=== PATIENT | female | born 1940 | race Caucasian/White ===

== ENCOUNTER 2023-11-11 16:47 | Inpatient (IN) | payer MEDICARE, SELFPAY ==
[2023-11-11] VITALS (10 sets, daily range): BP systolic 98–186; BP diastolic 53–96; BMI 24.2
[2023-11-11] MEDS: MORPHINE SULFATE 4 MG IV (09:47)
[2023-11-11 09:58] LABS: % Basophils 0.4 % (0-2); % Eosinophils 0.9 % (0-6); % Immature Granulocytes 0.8 % (0-0.5); % Lymphocytes 7.6 % (20.5-51.1); % Monocytes 10.3 % (1.7-9.3); Absolute Basophils 0.1 10^3/uL (0-0.2); Absolute Eosinophils 0.1 10^3/uL (0-0.7); Absolute Immature Granulocytes 0.1 10^3/uL (0-0.05); Absolute Lymphocytes 0.9 10^3/uL (1.2-3.4); Absolute Monocytes 1.2 10^3/uL (0.1-0.6); Absolute Neutrophils 8.9 10^3/uL (1.4-6.5); Hematocrit 38.6 % (37.0-47.0); Mean Corp Hgb Conc. 33.7 g/dL (33.0-37.0); Mean Corpuscular Hgb 30.2 pg (27.0-31.0); Mean Corpuscular Volume 89.8 fL (81.0-99.0); Mean Platelet Volume 9.8 fL (7.4-10.4); Nucleated Red Blood Cells % 0 %; Platelet Count 271 10^3/uL (130-400); White Blood Cell Count 11.2 10^3/uL (4.8-10.8)
--- NOTE | 2023-11-11 10:04 | ED.GENMED ---
History of Present Illness
<GAVINO Hoffmann Jr. Last Filed: 11/11/23 15:04>
General
Chief Complaint: Abdominal Pain
Source: patient and family
Exam Limitations: none
Time Seen by Provider: 11/11/23 08:53
Nursing documentation reviewed up to this point in time: agreed with
Travel History
Have you had any contact with someone who has COVID-19?: No
Do you have any symptoms of coronavirus? Fever > 100 degrees, chills, cough, shortness of breath, sore throat, loss of taste or smell, muscle aches, or headache?: No
History of Present Illness
History of Present Illness:
83-year-old female with past medical history of previous bladder cancer that was removed, hyperlipidemia presenting to the emergency department today with concerns of right lower chest over the past few days also was noticed herself feeling winded
with short bouts of exercise. Of note recently she had a chest x-ray a week ago that showed some type of mass to the right lower lobe of the lung and was recommended to get a CT scan of the chest for further assessment of this. Denies any known
history of cancer of the lung.
Past History
<GAVINO Hoffmann Jr. Last Filed: 11/11/23 15:04>
Past History
ED Past Medical History: Other (Bladder polyp)
ED Past Surgical History: Appendectomy and Urological (Polypectomy)
Social History
Tobacco: Non-smoker
Personal:
Living: with family
Family History
Family History: Other
Review of Systems
<GAVINO Hoffmann Jr. Last Filed: 11/11/23 15:04>
Review of Systems
Allergies reviewed?: Yes
All Other Systems: ROS reviewed and negative except as documented in HPI and ROS
Phy Exam
<GAVINO Hoffmann Jr. Last Filed: 11/11/23 15:04>
Physical Exam
Physical Exam:
GENERAL: Alert , in no apparent distress
EYE: pupils equal and reactive
NECK: Supple, no significant adenopathy.
ENT: o/p clr, mmm.
CARDIAC: Regular rate and rhythm .
LUNGS: Clear breath sounds bilaterally, no acute respiratory distress, no wheezes/rales/rhonchi
ABDOMEN: Soft, without focal tenderness, no r/g, no cvat
NEUROLOGICAL: Alert and oriented, no focal neuro deficits
SKIN: Warm and dry, skin intact.
MUSCULOSKELETAL: No edema, well perfused.
PSYCH: Normal and appropriate interaction.
Course
<Alex Leonardo Jr., PA-C - Last Filed: 11/11/23 15:04>
Orders/Labs/Results
Orders:
Orders
11/11/23 09:44
Electrocardiogram (*1) Urgent
Reason for Study: Chest Pain
EKG- Treatment ONCE
Morphine Sulfate 4 mg IV NOW STA
11/11/23 09:47
Complete Blood Count/With Diff Urgent
Comprehensive Metabolic Panel Urgent
Lipase Urgent
Comment: ADD ON
NT-proBNP Urgent
PTT Urgent
Prothrombin Time Urgent
Troponin I Urgent
11/11/23 10:14
US Abdomen Complete/Upper Urgent
Comment:
Reason For Exam: eval gb, ruq pain
11/11/23 10:15
HYDROmorphone [Dilaudid] 0.5 mg IV NOW STA
11/11/23 10:20
Add On- LAB Urgent
Tests Added?: lipase
11/11/23 11:14
Ketorolac [Toradol] 15 mg IV NOW STA
11/11/23 12:03
Urinalysis Reflex To Culture Urgent
Date Specimen was Collected: 11/11/23
Time Specimen was Collected: 12:00
Urine Microscopic Reflex Cult Urgent
Urine Culture Urgent
TERA Source: U
Specimen Description:
Date Specimen was Collected: 11/11/23
Time Specimen was Collected: 12:00
11/11/23 12:33
CT Chest Pe Study Urgent
Comment:
Reason For Exam: hypoxemic right lower chest pain
Diphenhydramine [Benadryl] 50 mg IV NOW STA
Hydrocortisone Sod Succinate [Solu-Cortef] 200 mg IV NOW STA
11/11/23 14:26
Heparin 5,400 units IV NOW STA
Nursing to Place Non Medication Order As Directed
Physician Order: PTT 6 hours after initial start of Heparin infusion
Above order entered?: Yes
11/11/23 14:30
Heparin 16309 Units/250 ml 25,000 units in 250 ml IV PER PROTOCOL
Weight to be used for heparin protocol in kilograms (kg):: 68
Protocol:: DVT/PE
PTT Goal Range to be used:: PTT 73 to 111 seconds
Order type:: Initial
INITIAL Infusion Dose (UNITS/KG/hr) & then follow protocol:: 18 units/kg/hr
Infusion Dose in UNITS/hr & then follow protocol (UNITS/hr):: 1,200
INFUSION RATE in mL/hr & then follow protocol (mL/hr):: 12
For DVT/PE algorithm, re-bolus for low PTT?: Yes
PTT less than or equal to 64 seconds:: Re-bolus 80 units/kg (max 10,000units). Increase by 300 units/hr
(+ 3mL/hr)
PTT 64.1 to 72.9 seconds:: Re-bolus 40 units/kg (max 5,000 units). Increase by 100 units/hr
(+ 1mL/hr)
PTT 73 to 111 seconds:: Target Range. No change in rate.
PTT 111.1 to 130.9 seconds:: Decrease rate by 100 units/hr (- 1 mL/hr)
PTT 131 to 199.9 seconds:: HOLD for 1 hr. Then decrease by 200 units/hr (- 2mL/hr)
PTT greater than or equal to 200 seconds:: HOLD for 2 hrs & Notify Provider. Then decrease by 300 units/hr
(- 3mL/hr)
Lab follow-up:: Each change, PTT q6h until 2 consecutive are therapeutic. Then
PTT daily.
11/11/23 14:44
Heparin 2,700 units IV PRN PRN
Heparin 5,400 units IV PRN PRN
11/11/23 20:50
PTT Urgent
Abnormal Lab Results
11/11/23 11/11/23
09:47 12:03
WBC 11.2 H 10^3/uL
(4.8-10.8)
RDW 15.0 H %
(11.5-14.5)
Abs Immat Gran (auto) 0.1 H 10^3/uL
(0-0.05)
Absolute Neuts (auto) 8.9 H 10^3/uL
(1.4-6.5)
Absolute Lymphs (auto) 0.9 L 10^3/uL
(1.2-3.4)
Absolute Monos (auto) 1.2 H 10^3/uL
(0.1-0.6)
Immature Gran % 0.8 H %
(0-0.5)
Neutrophils % 80.0 H %
(42.2-75.2)
Lymphocytes % 7.6 L %
(20.5-51.1)
Monocytes % 10.3 H %
(1.7-9.3)
PT 15.0 H Sec
(11.4-14.6)
Glucose 113 H mg/dl
(70-99)
Leukocyte Esterase Rfl 2+ A
(Negative)
Urine WBC (Reflex) 50-60 A /HPF
(0-5)
Urine Bacteria (Reflex) Moderate A
(Negative)
11/11/23 09:47
11/11/23 09:47
Vital Signs
Initial and Last Documented VS:
Initial Vital Signs
Temp Pulse Resp BP Pulse Ox
98.3 F 92 18 186/96 91
11/11/23 08:01 11/11/23 08:01 11/11/23 08:01 11/11/23 08:01 11/11/23 08:01
Last Documented Vital Signs
Temp Pulse Resp BP Pulse Ox
98.3 F 75 15 98/79 92
11/11/23 08:01 11/11/23 14:30 11/11/23 14:30 11/11/23 13:00 11/11/23 14:30
<Carmelo Latif MD - Last Filed: 11/11/23 14:30>
Orders/Labs/Results
Orders:
Orders
11/11/23 09:44
Electrocardiogram (*1) Urgent
Reason for Study: Chest Pain
EKG- Treatment ONCE
Morphine Sulfate 4 mg IV NOW STA
11/11/23 09:47
Complete Blood Count/With Diff Urgent
Comprehensive Metabolic Panel Urgent
Lipase Urgent
Comment: ADD ON
NT-proBNP Urgent
PTT Urgent
Prothrombin Time Urgent
Troponin I Urgent
11/11/23 10:14
US Abdomen Complete/Upper Urgent
Comment:
Reason For Exam: eval gb, ruq pain
11/11/23 10:15
HYDROmorphone [Dilaudid] 0.5 mg IV NOW STA
11/11/23 10:20
Add On- LAB Urgent
Tests Added?: lipase
11/11/23 11:14
Ketorolac [Toradol] 15 mg IV NOW STA
11/11/23 12:03
Urinalysis Reflex To Culture Urgent
Date Specimen was Collected: 11/11/23
Time Specimen was Collected: 12:00
Urine Microscopic Reflex Cult Urgent
Urine Culture Urgent
TERA Source: U
Specimen Description:
Date Specimen was Collected: 11/11/23
Time Specimen was Collected: 12:00
11/11/23 12:33
CT Chest Pe Study Urgent
Comment:
Reason For Exam: hypoxemic right lower chest pain
Diphenhydramine [Benadryl] 50 mg IV NOW STA
Hydrocortisone Sod Succinate [Solu-Cortef] 200 mg IV NOW STA
11/11/23 14:26
Heparin 5,400 units IV NOW STA
Nursing to Place Non Medication Order As Directed
Physician Order: PTT 6 hours after initial start of Heparin infusion
Above order entered?: Yes
11/11/23 14:30
Heparin [id number] Units/250 ml 25,000 units in 250 ml IV PER PROTOCOL
Weight to be used for heparin protocol in kilograms (kg):: 68
Protocol:: DVT/PE
PTT Goal Range to be used:: PTT 73 to 111 seconds
Order type:: Initial
INITIAL Infusion Dose (UNITS/KG/hr) & then follow protocol:: 18 units/kg/hr
Infusion Dose in UNITS/hr & then follow protocol (UNITS/hr):: 1,200
INFUSION RATE in mL/hr & then follow protocol (mL/hr):: 12
For DVT/PE algorithm, re-bolus for low PTT?: Yes
PTT less than or equal to 64 seconds:: Re-bolus 80 units/kg (max 10,000units). Increase by 300 units/hr
(+ 3mL/hr)
PTT 64.1 to 72.9 seconds:: Re-bolus 40 units/kg (max 5,000 units). Increase by 100 units/hr
(+ 1mL/hr)
PTT 73 to 111 seconds:: Target Range. No change in rate.
PTT 111.1 to 130.9 seconds:: Decrease rate by 100 units/hr (- 1 mL/hr)
PTT 131 to 199.9 seconds:: HOLD for 1 hr. Then decrease by 200 units/hr (- 2mL/hr)
PTT greater than or equal to 200 seconds:: HOLD for 2 hrs & Notify Provider. Then decrease by 300 units/hr
(- 3mL/hr)
Lab follow-up:: Each change, PTT q6h until 2 consecutive are therapeutic. Then
PTT daily.
11/11/23 14:44
Heparin 2,700 units IV PRN PRN
Heparin 5,400 units IV PRN PRN
11/11/23 20:50
PTT Urgent
Abnormal Lab Results
11/11/23 11/11/23
09:47 12:03
WBC 11.2 H 10^3/uL
(4.8-10.8)
RDW 15.0 H %
(11.5-14.5)
Abs Immat Gran (auto) 0.1 H 10^3/uL
(0-0.05)
Absolute Neuts (auto) 8.9 H 10^3/uL
(1.4-6.5)
Absolute Lymphs (auto) 0.9 L 10^3/uL
(1.2-3.4)
Absolute Monos (auto) 1.2 H 10^3/uL
(0.1-0.6)
Immature Gran % 0.8 H %
(0-0.5)
Neutrophils % 80.0 H %
(42.2-75.2)
Lymphocytes % 7.6 L %
(20.5-51.1)
Monocytes % 10.3 H %
(1.7-9.3)
PT 15.0 H Sec
(11.4-14.6)
Glucose 113 H mg/dl
(70-99)
Leukocyte Esterase Rfl 2+ A
(Negative)
Urine WBC (Reflex) 50-60 A /HPF
(0-5)
Urine Bacteria (Reflex) Moderate A
(Negative)
11/11/23 09:47
11/11/23 09:47
Vital Signs
Initial and Last Documented VS:
Initial Vital Signs
Temp Pulse Resp BP Pulse Ox
98.3 F 92 18 186/96 91
11/11/23 08:01 11/11/23 08:01 11/11/23 08:01 11/11/23 08:01 11/11/23 08:01
Last Documented Vital Signs
Temp Pulse Resp BP Pulse Ox
98.3 F 75 15 98/79 92
11/11/23 08:01 11/11/23 14:30 11/11/23 14:30 11/11/23 13:00 11/11/23 14:30
<Alex Leonardo Jr., PA-C - Last Filed: 11/11/23 15:04>
MDM/Problems Addressed
MDM/Problems Addressed:
83-year-old female presenting to the emergency department today with concerns of right lower chest discomfort. Ongoing for a few days. Also has felt some shortness of breath with exertion. Upon arrival here patient hypoxic in the 80s with 4 L
nasal cannula improving this to the low 90s. No history of requiring oxygen or lung issues. Did have some type of mass that was seen on x-ray last week. Other vital signs normal initial blood pressure elevated but reducing after receiving pain
medication. No reproducible tenderness to the abdomen. Plan for CT scan for further assessment.
Patient additionally had ultrasound to evaluate for multiple quad abdominal pain. No evidence of emergent pathology. Normal-appearing kidneys. Patient does have a slight white count on labs otherwise labs unremarkable urine potentially infection
however patient does not have any urinary David symptoms thus was not started on antibiotics at this time. CT scan was obtained showing bilateral PE and right sided mass potentially bronchogenic carcinoma. Case was discussed with pulmonary and
interventional radiology due to the findings of right heart strain on CT scan. Patient will be admitted to medicine stable throughout ER stay on 4 L nasal cannula.
<Alex Leonardo Jr., PA-C - Last Filed: 11/11/23 15:04>
*Critical Care Note
Total Time (30-74mins, 75-104mins- exclusive of procedures): Not Applicable
ED Attending Note
<Alex Leonardo Jr., PA-C - Last Filed: 11/11/23 15:04>
-
Portions of this chart may have been created with voice recognition software.� Occasional wrong word or��sound alike� substitutions may have occurred due to the inherent limitations of voice recognition software.
<Carmelo Latif MD - Last Filed: 11/11/23 14:30>
ED Attending Note
Patient seen and examined by attending physician: Yes
ED Attending Note:
Patient presents to ED secondary to 2-day history of persistent right upper abdominal/chest pain. Pain described as sharp, worse when laying down, with nausea sensation without vomiting. Denies fever or chills. Denies diarrhea. Denies trauma.
Denies difficulty with urination. Patient has had history of kidney stones, but does not remember if pain is similar to what she had with a kidney stone episode. Denies recent illness. No recent change in medications or diet. Denies change in
bowel habits.
Physical Exam
General: moderate painful distress, not acutely ill. afebrile. overweight.
Head: nc/at. eomi
Neck: supple. no meningeal signs.
Heart: s1/s2 regular rate and rhythm, no murmur. equal radial pulses.
Lungs: no acute respiratory distress. clear bilaterally
Abdomen: normal bowel sounds. moderate epigastric/RUQ tenderness to palpation.
Neuro: alert and oriented. no focal neurological deficits
Skin: no rash
Psychiatric: well kept. interactive and cooperative
Extremities: no edema. no calf tenderness
History and exam concerning for. Colic versus renal colic versus pancreatitis versus pulmonary embolism. Patient's initial presenting hypoxia, without subjective sensation of shortness of breath, likely secondary to pain and patient's
unwillingness to take deep breaths secondary to pain. Will obtain abdominal ultrasound and reevaluate.
US report reviewed: gallstone without associated findings. Pt however has had gallstones in the past. As such, will obtain CTA PE study, due to persistent hypoxia, when taken off oxygen.
CTA: positive PE. Will start heparin protocol.
Critical care statement: A total of 40 minutes of critical care time was provided for this patient. This includes management of unstable vital signs, evaluation of the patient at bedside, reviewing the patient's pertinent medical records, review of
old EKGs and review of pertinent medical records. This time with separate from time utilized to perform the aforementioned documented procedures
Discharge Plan
Departure
Patient Disposition: Admit
Date of Disposition: 11/11/23
Time of Disposition: 15:03
Admit to: IMU
Admit to doctor: Klaus
Presentation/result/management discussed w/ accepting MD/DO: Hospitalist
Patient with high blood pressure during this ER visit?: No
Condition: Good
Covid-19: Not Applicable
Discharge Problem:
Pulmonary embolism, Mass of right lung, Hypoxemia
Prescriptions:
No Action
multivitamin 1 EACH tablet
1 ea PO DAILY
Lumigan 1 DROP drops
1 drp BOTH EYES HS
simvastatin 20 MG tablet
20 mg PO QPM
prednisone 5 mg Tablet
5 mg PO NOON
levothyroxine [Synthroid] 25 mcg Tablet
25 mcg PO DAILY
ibuprofen [Advil] 200 mg Tablet
400 mg PO Q8HPRN PRN (Reason: mild pain)
Referrals:
Thais Schmidt MD [Family Provider] -
Interventions
Interventions:
*Risk Screen - Suicide Last Done: 11/11/23 09:03
*General Assessment Last Done: 11/11/23 09:03
*Neglect/Abuse Screening Last Done: 11/11/23 09:03
ED- Fall Risk Assessment Last Done: 11/11/23 09:03
*ED COVID-19 Vaccine History Last Done: 11/11/23 09:03
XA-Mgmzox-Orglcyqhjv Assessment Last Done: 11/11/23 09:03
[2023-11-11 10:14] LABS: ALT (SGPT) 19 U/L (0-35); AST (SGOT) 23 U/L (14-36); Albumin 3.9 g/dl (3.5-5.0); Alkaline Phosphatase 74 U/L (38-126); Blood Urea Nitrogen 17 mg/dl (7-17); Calcium 9.3 mg/dl (8.4-10.2); Carbon Dioxide 27 mmol/L (22-30); Chloride 107 mmol/L (98-107); Estimated Creatinine Clearance 57 ml/min; Glucose 113 mg/dl (70-99); Potassium 4.4 mmol/L (3.5-5.1); Sodium 139 mmol/L (135-145); Total Bilirubin 0.7 mg/dl (0.2-1.3); Total Protein 6.7 g/dl (6.3-8.2); eGFR > 60.00
[2023-11-11] MEDS: DILAUDID 0.5 MG IV (10:19)
[2023-11-11 10:25] LABS: APTT 34.2 Sec (23.4-35.0); NT-proBNP 148 pg/ml; Troponin I < 0.012 ng/ml
[2023-11-11 10:36] LABS: Lipase 95 U/L (23-300)
[2023-11-11] MEDS: TORADOL 15 MG IV (11:22)
[2023-11-11 12:17] LABS: Urine Albumin Trace (Neg - Trace); Urine Bilirubin Negative (Negative); Urine Character Slightly Cloudy (Clear); Urine Color Yellow; Urine Glucose Negative (Negative); Urine Ketone Negative (Negative); Urine Leukocyte 2+ (Negative); Urine Nitrite Negative (Negative); Urine Occult Blood Negative (Negative); Urine Specific Gravity 1.025 (<1.030); Urine Urobilinogen Negative (Neg - 1+)
[2023-11-11] MEDS: BENADRYL 50 MG IV (12:48)
[2023-11-11 12:50] LABS: Urine White Cell 50-60 /HPF (0-5)
[2023-11-11 12:51] LABS: Urine Bacteria Moderate (Negative); Urine Red Blood Cell 0-2 /HPF (0-2)
[2023-11-11 12:52] LABS: Urine Urothelial Cell 0-2 /LPF (FEW)
[2023-11-11] MEDS: SOLU-CORTEF 200 MG IV (13:37)
[2023-11-11] MEDS: HEPARIN 5400 UNITS IV (14:49)
[2023-11-11] MEDS: HEPARIN 25000 UNITS/250 ML IV (14:50)
--- NOTE | 2023-11-11 15:27 | CON.INTV ---
Consultation
Consultation Request
Date/Time Consultation Requested: 11/11/2023 - 144
Date/Time Consultation Performed: 11/11/2023 - 1457
Requesting Provider: YANICK Warren
Performing Provider: Dr. Anderson
Reason for Consultation: PERT alert
Medical History
-
Chief Complaint: Abdominal pain
History of Present Illness:
83-year-old female former tobacco smoker with past medical history of bladder cancer on BCG, hypothyroidism, and hyperlipidemia who presents with right upper quadrant pain x 2 days. Patient afebrile in the ER to 90.3 �F, pulse rate 75, BP: 98/79,
SpO2 92% on room air. Labs suggestive of leukocytosis with WBC 11.2, Hb 13 and platelets 271. Urinalysis shows +2 leukocyte esterase suggestive of UTI. Right upper quadrant ultrasound showed gallstones without evidence of acute cholecystitis.
While in the ER, she developed chest discomfort hypoxia and CTA chest was performed showing PE.
When I saw the patient she was in bed, saturating 93% on 4 L/min nasal cannula, BP 150/84 and heart rate 84. She says she still feels fatigued, shortness breath with activity. She is a former smoker with [id number] history, quit 40 years ago.
Her father has a history of lung cancer (he was cigar smoker), and mother also had lung cancer and she from acute kidney failure. She is currently finishing treatment for bladder cancer with BCG - she was diagnosed with bladder cancer
about 3-4 years ago. She denies any personal Hx of DVT/PE or VTE. She currently denies chest pain, headache, nausea, vomiting, fevers or chills.
PMHx: Former tobacco use disorder, hyperlipidemia, right hip arthritis, cataracts, glaucoma, impaired vision, history of lung cancer, hypothyroidism
PSHx: Appendectomy, bilateral cataract surgery
Past Medical History
Past Medical History: Other (Above as per HPI)
Past Surgical History: Other (Above as per HPI)
Social History
Tobacco: Former Smoker (20-PY Hx - quit 40 years ago)
Alcohol: None
Drug: None
Family History
Family History: Cancer (Lung cancer - father and mother)
Allergies / Home Medications
Allergies
Allergy/AdvReac Type Severity Reaction Status Date / Time
iodine Allergy Hives Verified 06/01/21 07:58
shellfish derived Allergy Hives Verified 06/01/21 07:58
Sulfa (Sulfonamide Allergy Internal, Verified 06/01/21 07:58
Antibiotics) external
hives
Home Medications
Medication Instructions Recorded Confirmed Last Taken Type
multivitamin 1 ea PO DAILY Supplement 09/27/18 11/11/23 11/10/23 History
bimatoprost 0.01 % eye drops 1 drp BOTH EYES HS Eye Condition 01/11/21 11/11/23 11/10/23 History
(Lumigan)
simvastatin 20 mg tablet 20 mg PO QPM High Cholesterol 05/29/21 11/11/23 11/10/23 History
ibuprofen 200 mg tablet (Advil) 400 mg PO Q8HPRN PRN mild pain 11/11/23 11/11/23 Unknown History
levothyroxine 25 mcg tablet 25 mcg PO DAILY Thyroid 11/11/23 11/11/23 Unknown History
(Synthroid)
prednisone 5 mg tablet 5 mg PO NOON Anti-Inflammatory 11/11/23 11/11/23 Unknown History
Review of Systems
-
History Source: Patient
All other systems: Negative unless noted (12 point ROS performed and is negative unless mentioned above.)
Vitals / Labs / Diagnostic Testing
Vital Signs
Temp Pulse Resp BP Pulse Ox
98.3 F 75 15 98/79 92
11/11/23 08:01 11/11/23 14:30 11/11/23 14:30 11/11/23 13:00 11/11/23 14:30
Lab Data
11/11/23 09:47
11/11/23 09:47
Laboratory Results
11/11/23
09:47
PT 15.0 H
INR 1.20
APTT 34.2
Diagnostic Testing:
Physical Exam
-
HEENT: Normocephalic and Anicteric
Cardiovascular: S1/S2 and Peripheral Edema (Negative)
Respiratory: Wheeze (Negative), Rales (bibasilar), Rhonchi (right lower lobe + RML) and Accessory Resp Muscle Use (Negative)
GI: Soft, Non Distended, Non Tender and Normal Bowel Sounds
Neurology: AO x 3 and No Motor Deficits
Skin: Warm and Dry
General: Comfortable, Chills (Negative) and Sweats (Negative)
Assessment
-
Assessment: 83-year-old female former tobacco smoker with past medical history of bladder cancer on BCG, hypothyroidism, and hyperlipidemia who presents with right upper quadrant pain x 2 days. Patient afebrile in the ER to 90.3 �F, pulse rate 75,
BP: 98/79, SpO2 92% on room air. Labs suggestive of leukocytosis with WBC 11.2, Hb 13 and platelets 271. Urinalysis shows +2 leukocyte esterase suggestive of UTI. Right upper quadrant ultrasound showed gallstones without evidence of acute
cholecystitis. While in the ER, she developed chest discomfort hypoxia and CTA chest was performed showing PE.
Chronic medical conditions PEDIATRIC RN: Former tobacco use disorder, hyperlipidemia, right hip arthritis, cataracts, glaucoma, impaired vision, history of lung cancer, hypothyroidism
Impression:
#Acute hypoxic respiratory failure due to acute PE in setting of R-sided PNA + extrinsic compression of bronchus intermedius by R-hilar mass
#Right upper lobe/right lower lobe pneumonia likely representing postobstructive pneumonia in setting of right hilar mass (suspected lung cancer)
#Submassive pulmonary embolism with high risk features
#Right hilar mass with right-sided mediastinal/hilar lymphadenopathy - suspected to be bronchogenic carcinoma with localized spread
#RUQ pain with 1.8cm gallstone and without cholecystitis --> RUQ pain likely referred pain in setting of acute PE
Plan:
- Systemic anticoagulation - heparin gtt and eventually NOAC
- IR reviewed imaging --> considering clot burden are distal and pt has mild RV strain with negative troponin, no need for thrombolytic therapy or thrombo-/-embolectomy
- Maintain MAP>65
- Monitor for sudden drop in SBP>15-20% and/or HR>120 as this could indicate developing obstructive shock
- pain control
- Check TTE
- Check LE duplex
- Maintain euglycemia with BG 140-180mg/dL
- Replete electrolytes K>3.5, Mg>1.8
- DVT ppx
Admit to telemetry. We will follow along as a it architecture consultant.
Data:
CTA Chest 10-11-2023: �Examination is positive for bilateral pulmonary embolism. Finding was [place] text to Alex Leonardo in the emergency department on November 11, 2023, with acknowledgment.
Findings suggesting mild right heart strain.
Central right lung mass, which very likely represents bronchogenic carcinoma.
Patchy parenchymal opacity within the right lung beyond the mass, which is likely postobstructive pneumonia and/or atelectasis.
Trace amount of right pleural fluid.
Right suprahilar and mediastinal lymphadenopathy, which is likely neoplastic lymphadenopathy.
Mild fatty infiltration of the liver.
Abdominal US 11-11-2023:
1.8 cm gallstone is present within the gallbladder. There are no secondary findings to suggest acute cholecystitis. No evidence of biliary ductal dilation.
Mild fatty infiltration of the liver.
--- NOTE | 2023-11-11 16:36 | HPS.HSE ---
Family Physician
-
Family Physician: Thais Schmidt
Chief Complaint
-
Right pleuritic chest pain
History of Present Illness
Patient is 83 years old female with history of surgically treated bladder carcinoma, dyslipidemia, hypothyroidism presents to the emergency room with days of right lower chest pain. She also complains of exertional shortness of breath. She denies
any syncope, fever. She has mild intermittent nonproductive cough. Given persistent respiratory symptoms patient had a chest x-ray ordered by primary physician close to a week ago with report showing right lower lobe process with suspicion for
mass/carcinoma. Given persistent symptoms and worsening shortness of breath she presents to the emergency room today. On presentation his she is hemodynamically stable, although noted to be hypoxic with pulse ox at mid 80s on room air. Additional
workup with CT scan of the chest was positive for pulmonary embolism and right lower lobe/hilar process. Patient was initiated on oxygen therapy with now saturations at mid 90s on 4 L of nasal cannula oxygen with no evidence of distress. She
remains hemodynamically stable. Patient was initiated on IV heparin drip.
Medical History
Past Medical History
Past Medical History: Reports Cancer (Bladder cancer), Hypercholesterolemia and Hypothyroidism; Denies CHF, COPD or CVA
Past Surgical History: Reports Other (Urologic/bladder)
Social History
Tobacco: Former Smoker (Quit 35 years ago)
Alcohol: None
Drug: None
Personal:
Living: With Family
Employment: Retired
Family History
Family History: Not pertinent
Allergies / Home Medications
Allergies reflects when Allergies were last updated in [employer].
Home Medications with original date entered in [employer]
Allergy/Medication List:
Allergies
Allergy/AdvReac Type Severity Reaction Status Date / Time
iodine Allergy Hives Verified 06/01/21 07:58
shellfish derived Allergy Hives Verified 06/01/21 07:58
Sulfa (Sulfonamide Allergy Internal, Verified 06/01/21 07:58
Antibiotics) external
hives
Home Medications
multivitamin 1 ea PO DAILY Supplement 09/27/18
bimatoprost 0.01 % eye drops (Lumigan) 1 drp BOTH EYES HS Eye Condition 01/11/21
simvastatin 20 mg tablet 20 mg PO QPM High Cholesterol 05/29/21
ibuprofen 200 mg tablet (Advil) 400 mg PO Q8HPRN PRN mild pain 11/11/23
levothyroxine 25 mcg tablet (Synthroid) 25 mcg PO DAILY Thyroid 11/11/23
prednisone 5 mg tablet 5 mg PO NOON Anti-Inflammatory 11/11/23
Review of Systems
-
A 12 point ROS was completed and negative except as noted: Yes
Physical Exam
Vital Signs
Vital Signs
Temp Pulse Resp BP Pulse Ox
98.3 F 81 19 98/79 92
11/11/23 08:01 11/11/23 15:30 11/11/23 15:30 11/11/23 13:00 11/11/23 15:30
Physical Exam
General: Well Developed, Well Nourished and No Apparent Distress
HEENT: NormoCephalic, Moist mucous membranes and Atraumatic
Respiratory: Clear
Cardiac: S1/S2 and Regular Rhythm; No Murmur or Rub
GI: Soft, Non Tender, Non Distended and Normal Bowel Sounds; No Organomegaly
Rectal: Deferred by Provider
Musculoskeletal: No Clubbing, No Cyanosis and No Edema
Skin: No Rash
Neuro: Awake, Alert, Oriented, AO x 3 and Nonfocal/grossly intact
Laboratory Results
-
11/11/23 09:47
11/11/23 09:47
Laboratory Results
PT 15.0 Sec (11.4-14.6) H 11/11/23 09:47
INR 1.20 11/11/23 09:47
APTT 34.2 Sec (23.4-35.0) 11/11/23 09:47
Total Bilirubin 0.7 mg/dl (0.2-1.3) 11/11/23 09:47
AST 23 U/L (14-36) 11/11/23 09:47
ALT 19 U/L (0-35) 11/11/23 09:47
Alkaline Phosphatase 74 U/L (38-126) 11/11/23 09:47
Troponin I < 0.012 ng/ml 11/11/23 09:47
Lipase 95 U/L (23-300) 11/11/23 09:47
Data Reviewed
-
CT Scan: Report Reviewed by me
Ultrasound: Report Reviewed by me
Lab Data: Labs Reviewed by me
Impression/Plan
-
IMPRESSION:
Acute hypoxic respiratory failure.
� Exertional dyspnea with hypoxia at 84% on room air
Pulmonary embolism, bilateral.
Central right lung mass likely presenting bronchogenic carcinoma
Patchy parenchymal opacity within the right lung beyond the mass with concern for atelectasis versus postobstructive pneumonia.
Conditions prior to admission:
Hypothyroidism
Dyslipidemia.
History of bladder carcinoma surgically treated
PLAN:
Acute hypoxic respiratory failure.
Likely multifactorial in the settings of acute PE as well as lung mass.
Improved and stable with nasal cannula oxygen supplementation.
Acute pulmonary embolism.
CT scan as above.
Hemodynamically stable on presentation.
Suggestion of mild right heart strain on CT scan.
PESI 133 assuming diagnosis of carcinoma by imaging which represents class V very high risk.
Given hemodynamic stability no clear indication for lytic treatment.
Check echocardiogram
Lower extremity Doppler reviewed
Initiated on IV heparin with plan to transition to oral anticoagulation over the next 24 to 48 hours
Pulmonology consultation
Right lower lobe infiltrate, atelectasis versus postobstructive process/pneumonia.
Afebrile with normal white count, nonproductive cough. At this point less likely infectious process.
Will monitor closely while off antibiotics
Check procalcitonin.
Hypothyroidism
Continue levothyroxine
Dyslipidemia
Continue statin
GI prophylaxis PPI given anticoagulation.
DVT prophylaxis/heparin
--- NOTE | 2023-11-11 18:30 | PTCARENOTE ---
Received patient from ED. Patient AAOX3. Patient on 6L o2, sp02 95%. Lungs diminished with scattered expiratory wheezing. Patient denies shortness of breath, Denies chest pain or pressure. Heparin drip infusing at 1200 units/12mls/hr via right
ac site. SR on monitor. Oriented patient to room.
[2023-11-11] MEDS: PROTONIX 20 MG PO (18:39)
[2023-11-11] MEDS: SYNTHROID 25 MCG PO (18:39)
[2023-11-11] MEDS: LIPITOR 10 MG PO (18:39)
[2023-11-11] MEDS: METAMUCIL, KONSYL 1 PACKET PO (21:44)
[2023-11-11] MEDS: LUMIGAN 0.01% 1 DROP BOTH EYES (21:45)
[2023-11-11 21:50] LABS: Procalcitonin 0.08 ng/ml (0.0-0.25)
[2023-11-11 22:29] LABS: APTT > 200 Sec (23.4-35.0)
--- NOTE | 2023-11-11 23:52 | PTCARENOTE ---
Assumed care of pt from day RN, Pt on heparin gtt 1200U/12ml/hr. Pt AAOx3, completed admission. Follow up PTT above 200, reported to Night [employer] and protocol followed.
[2023-11-12] VITALS (12 sets, daily range): BP systolic 114–144; BP diastolic 55–94
[2023-11-12] MEDS: SYNTHROID 25 MCG PO (04:51)
[2023-11-12 06:56] LABS: % Basophils 0.3 % (0-2); % Eosinophils 2.2 % (0-6); % Immature Granulocytes 0.9 % (0-0.5); % Lymphocytes 11.5 % (20.5-51.1); % Neutrophils 74.1 % (42.2-75.2); Absolute Eosinophils 0.2 10^3/uL (0-0.7); Absolute Immature Granulocytes 0.1 10^3/uL (0-0.05); Absolute Lymphocytes 0.9 10^3/uL (1.2-3.4); Absolute Monocytes 0.9 10^3/uL (0.1-0.6); Absolute Neutrophils 5.8 10^3/uL (1.4-6.5); Hematocrit 34.6 % (37.0-47.0); Hemoglobin 11.5 g/dL (12.0-16.0); Mean Corp Hgb Conc. 33.2 g/dL (33.0-37.0); Mean Corpuscular Hgb 29.9 pg (27.0-31.0); Mean Corpuscular Volume 89.9 fL (81.0-99.0); Mean Platelet Volume 10.1 fL (7.4-10.4); Nucleated Red Blood Cells % 0 %; Platelet Count 257 10^3/uL (130-400); Red Blood Cell Count 3.85 10^6/uL (4.20-5.40); Red Cell Dist. Width 14.7 % (11.5-14.5); White Blood Cell Count 7.9 10^3/uL (4.8-10.8)
[2023-11-12 07:12] LABS: APTT 84.1 Sec (23.4-35.0)
[2023-11-12 07:25] LABS: Blood Urea Nitrogen 23 mg/dl (7-17); Calcium 8.7 mg/dl (8.4-10.2); Carbon Dioxide 25 mmol/L (22-30); Chloride 109 mmol/L (98-107); Estimated Creatinine Clearance 67 ml/min; Glucose 94 mg/dl (70-99); Potassium 3.9 mmol/L (3.5-5.1); Sodium 137 mmol/L (135-145); eGFR > 60.00
--- NOTE | 2023-11-12 08:00 | PTCARENOTE ---
Patient received from night shift manager. Patient resting comfortable in bed. AAO, VSS. No events noted overnight. No complaints of pain at this time. Patient still on O2, will attempt to wean. Heparin gtt @ 900units/hr, PTT assessment resulted @
0726 was 84.1. Patient to get up to chair for breakfast. ECHO to be done. Call chambers in reach.
[2023-11-12] MEDS: PROTONIX 20 MG PO (08:49)
[2023-11-12] MEDS: THERAGRAN 1 TABLET PO (08:49)
--- NOTE | 2023-11-12 09:39 | W.PN.PUL3 ---
Today's Communication / Plan
-
Continued on IV heparin with eventual transition to OAC
Lung mass suspicious for cancer, will need outpatient FU which was reviewed again with patient
Wean O2 as tolerated, home O2 eval
ECHO pending
Assessment
-
83-year-old female former tobacco smoker with past medical history of bladder cancer on BCG, hypothyroidism, and hyperlipidemia who presents with right upper quadrant pain x 2 days.� Patient afebrile in the ER to 90.3 �F, pulse rate 75, BP: 98/79,
SpO2 92% on room air.� Labs suggestive of leukocytosis with WBC 11.2, Hb 13 and platelets 271.� Urinalysis shows +2 leukocyte esterase suggestive of UTI.� Right upper quadrant ultrasound showed gallstones without evidence of acute cholecystitis.�
While in the ER, she developed chest discomfort hypoxia and CTA chest was performed showing PE.
Acute hypoxic respiratory failure due to acute PE in setting of R-sided PNA + extrinsic compression of bronchus intermedius by R-hilar mass
Right upper lobe/right lower lobe pneumonia likely representing postobstructive pneumonia in setting of right hilar mass (suspected lung cancer)
Submassive pulmonary embolism with high risk features
6.5cm Right hilar mass with right-sided mediastinal/hilar lymphadenopathy - suspected to be bronchogenic carcinoma with localized spread
RUQ pain with 1.8cm gallstone and without cholecystitis --> RUQ pain likely referred pain in setting of acute PE
Chronic medical conditions [employer]:�
Recurrent Bladder Cancer (02/2017, 12/2020) s/p �TURBT x 3, BLC: Ta, High-grade and CIS�
s/p Blue-light cystoscopy with biopsy: no cancer� � 05/2021 �
Former tobacco use disorder
Hyperlipidemia
Right hip arthritis
Cataracts
Glaucoma
Impaired vision
Hypothyroidism
Family history of lung cancer
Plan:
Currently on 6L with sats at 96%
She has no prior known history of lung disease in past
Former smoker, 1/2-1 PPD for 20 years, quit many years ago
Family history +lung cancer in her father, diagnosed in his 60s
PE noted on CT, reviewed
Initiated on systemic anticoagulation - heparin gtt and eventually NOAC
IR reviewed imaging --> considering clot burden are distal and pt has mild RV strain with negative troponin, no need for thrombolytic therapy or thrombo-/-embolectomy
Eventual transition to OAC
Maintain MAP>65
Monitor for sudden drop in SBP>15-20% and/or HR>120 as this could indicate developing obstructive shock
Pain control PRN
Reviewed findings of lung mass with patient
This is a new finding
Has history of localized bladder cancer, was finishing treatment
We reviewed next steps can be done as OP, FU CT with evaluation for need for tissue biopsy
Outpatient pulmonary FU recommended
Procal neg
Not on abx
Sputum culture if able
Check TTE, results pending
proBNP neg 148
Check LE duplex
Aspiration precautions
Advance diet as tolerated
Reviewed care plan with patient
Diagnostic Data
CTA Chest 11-11-2023: �In the left, there is a small amount of embolus extending into the proximal HILARY anterior segment branch. There is embolus within the distal aspect of the left upper lobe main pulmonary artery, and extending into the left lower
lobe proximal pulmonary artery. On the right, there is narrowing of RML and RLL pulmonary artery branches due to a central mass lesion. There are subtle filling defects within the middle lobe and lower lobe segmental branches, compatible with
right-sided emboli. Interventricular septum is slightly deviated toward the left, particularly toward the base of the left ventricle. The right ventricle is slightly larger than the left ventricle. Findings would suggest a component of right heart
strain.
There is a central right hilar and infrahilar mass, and appears to involve the right upper lobe, right middle lobe, with greatest involvement in the anterior aspect of the right lower lobe. This mass measures approximately 6.0 cm craniocaudal by 6.5
cm AP by 4.7 cm transverse. The mass invades the lateral aspect of the bronchus intermedius, extending into the lumen, as seen on image 41 of series 402. The mass results in encasement and narrowing of the right middle lobe and right lower lobe
pulmonary arteries. This mass is highly suspicious for central bronchogenic carcinoma.
Note is also made of subcarinal lymphadenopathy. There are lymph nodes extending into the right suprahilar region into the mediastinum, suspicious for neoplastic lymphadenopathy.
Patchy parenchymal opacity within the more distal aspect of the right lower lobe, the right middle lobe, and the inferolateral aspect of the right upper lobe, which is most likely postobstructive pneumonia and/or atelectasis.
Duplex 11/11/23- IMPRESSION:� No no findings to confirm deep venous thrombosis of the lower extremities bilaterally.
Abdominal US 11-11-2023:
1.8 cm gallstone is present within the gallbladder. There are no secondary findings to suggest acute cholecystitis. No evidence of biliary ductal dilation.
Mild fatty infiltration of the liver.
Subjective Data
-
Date of Service:
Date of Service: November 12, 2023
Chief Complaint: Pulmonary Follow Up
Subjective:
patient seen and examined, no acute events ON
no new complaints
obtaining echo
Objective Data
Data Reviewed
Vital Signs / I&O / Oxygen:
Vital Signs
Temp Pulse Resp BP Pulse Ox
97.2 F 60 21 136/70 94
11/12/23 03:00 11/12/23 06:00 11/12/23 06:00 11/12/23 06:00 11/12/23 08:49
Intake and Output
11/11/23 11/12/23 11/13/23
06:59 06:59 06:59
Intake Total 537 / 537
Balance 537 / 537
SaO2 94
Nasal Cannula flow liters per 6
minute
Physical Exam
General: Comfortable and Other (NAD, obese)
HEENT: Normocephalic, Anicteric and Moist Mucous Membranes
Cardiovascular: S1-S2 and Regular Rhythm
Respiratory: Clear (decreased BS at bases) and Non-Labored Respirations
GI: Soft, Non Distended and Non Tender
Neurology: Awake, Alert, Oriented, AO x 3 and No Motor Deficits
Skin: Warm, Dry and Good Color
Labs/Micro/Reports
Lab Data
11/12/23 06:44
11/12/23 06:44
Laboratory Results
11/11/23 11/11/23 11/11/23
09:47 20:46 21:53
PT 15.0 H
INR 1.20
APTT 34.2 Cancelled > 200 H*
11/12/23
06:44
PT
INR
APTT 84.1 H
--- NOTE | 2023-11-12 10:05 | CM ---
Patient who resides at [facility] with Dx Acute hypoxic respiratory failure, Acute pulmonary embolism. O2 6L. Heparin gtt. Per nurse assessment; requires assist of 1.
Spoke with patient's Juan Jose;
the patient resides with her in an apartment at [facility].
The patient was Independent ADLs/ambulation. She was active and driving.
She assists her as his caregiver - he states he is homebound and on O2.
The patient has no DME, prior VN or SNF.
PCP - Thais Schmidt
Pharmacy - [facility]
Plan met with patient and offer VN.
Plan watch for home O2 needs.
Plan home.
--- NOTE | 2023-11-12 10:18 | CM ---
Patient who resides at [facility] with Dx Acute hypoxic respiratory failure, Acute pulmonary embolism. O2 6L. Heparin gtt. Per nurse assessment; requires assist of 1.
Spoke with patient's Juan Jose;
the patient resides with her in an apartment at [facility].
The patient was Independent ADLs/ambulation. She was active and driving.
She assists her as his caregiver - he states he is homebound and on O2.
The patient has no DME, prior VN or SNF.
PCP - Thais Schmidt
Pharmacy - [facility]
The patient has 2 children, a son in [place] and a daughter Amy in the [facility], who is an DIRECTOR OF OFFICIATING and a Professor at [employer].
Plan met with patient and offer VN.
Plan watch for home O2 needs.
Plan home.
[2023-11-12] MEDS: DELTASONE 5 MG PO (12:57)
[2023-11-12 13:25] LABS: APTT 36.1 Sec (23.4-35.0)
--- NOTE | 2023-11-12 13:40 | W.PN.HOSP.TC ---
Addendum entered and electronically signed by Ivan Alba MD 11/12/23 16:55:
Patient seen and examined
Discussed with resident
Discussed with pulmonology.
Impression/plan:
Acute bilateral pulmonary embolism.
Acute hypoxic respiratory failure likely multifactorial due to PE as well as right lower lobe process with high clinical/radiologic suspicion for bronchogenic carcinoma
Presented hemodynamically stable.
Echocardiogram with no evidence of RV strain or pulmonary hypertension.
Transition to oral anticoagulation with Eliquis
Increase activity as tolerates with attempt to wean off oxygen.
Right lower lobe process with concern for bronchogenic carcinoma
Outpatient follow-up with pulmonology
Oncology consultation
Concern for postobstructive process, although patient is afebrile with nonproductive cough which improved since admission
Procalcitonin level undetectable
Monitor closely off antibiotics
Original Note:
Today's Communication/Plan
-
- Transition to apixaban.
- Wean oxygen as tolerated.
- Oncology consult for suspected bronchogenic carcinoma with suprahilar and mediastinal lymphadenopathy (patient is not followed by heme/onc outpatient).
Assessment / Plan
Assessment / Plan
Assessment:
Anahy Mcgill, 83 year-old female, presented to the emergency with progressively worsening right lower chest pain and exertional dyspnea on 11-11-23. She has had mild intermittent nonproductive cough for the past few weeks, and had a chest x-ray
ordered by primary physician close to a week ago with report showing right lower lobe process with suspicion for mass/carcinoma. When she started experiencing chest pain and progressive dyspnea, she came to the ED. On admission, she was noted to be
hypoxic with pulse ox at mid-80s on room air. Chest CT was positive for bilateral pulmonary embolism, central right lung mass (which very likely represents bronchogenic carcinoma with right suprahilar and mediastinal lymphadenopathy). Echo was
normal. She was treated with heparin IV, transitioned to apixaban on 11-12-23.
Impression:
* Bilateral pulmonary embolism
* Suspected bronchogenic carcinoma
* Right lower lobe infiltrate
Conditions prior to admission:
* History of bladder cancer
* Hypothyroidism
* Dyslipidemia
Plan:
Bilateral pulmonary embolism
- She came to the emergency with progressive right chest pain and exertional dyspnea on 11-11-23.
- On admission, she was noted to be hypoxic with pulse ox at mid-80s on room air.
- CTA chest showed bilateral pulmonary embolism with evidence of right heart strain.
- Given hemodynamic stability, there was no clear indication for lytic treatment.
- She was treated with IV heparin, and transitioned to apixaban on 11-12-23.
- Echocardiogram and peripheral lower extremity ultrasound were unremarkable on 11-12-23.
- Pulse ox 96 on 6 L on 11-12-23.
- She remains hemodynamically stable.
- No previous history of DVT/PE, or known history of blood or clotting disorders.
- Seems provoked in context of the new suspected bronchogenic carcinoma.
Suspected bronchogenic carcinoma
- CT chest shows 'central right hilar and infrahilar mass, and appears to involve the right upper lobe, right middle lobe, with greatest involvement in the anterior aspect of the right lower lobe. This mass measures approximately 6.0 cm craniocaudal
by 6.5 cm AP by 4.7 cm transverse. The mass invades the lateral aspect of the bronchus intermedius, extending into the lumen.'
- Also demonstrated 'subcarinal lymphadenopathy. There are lymph nodes extending into the right suprahilar region into the mediastinum, suspicious for neoplastic lymphadenopathy.'
- Of note recently she had a chest x-ray a week ago that showed some type of mass to the right lower lobe of the lung.
- She has had intermittent nonproductive cough for the past few weeks.
- 58-[id number] history; quit 40 years ago.
- Her father has a history of lung cancer (he was cigar smoker), and mother also had lung cancer and she from acute kidney failure.
- Pulmonary following.
- Oncology consult for suspected bronchogenic carcinoma with right suprahilar and mediastinal lymphadenopathy (patient is not followed by heme/onc outpatient).
Right lower lobe infiltrate
- Atelectasis versus postobstructive process/pneumonia.
- Afebrile, nonproductive cough, white count and procalcitonin within normal limits
- Less likely to be infectious.
- Monitor closely while not on antibiotics.
History of bladder cancer
- She is currently finishing treatment with BCG.
- She was diagnosed with bladder cancer about 3-4 years ago.
Hypothyroidism
- Continue levothyroxine
Dyslipidemia
- Continue statin
GI prophylaxis
- PPI given anticoagulation.
DVT prophylaxis
- Heparin; will switch to apixaban.
Code status
- Full.
Anticipated Discharge: 24 - 48 hours
Subjective/Interval History
-
Date of Service: November 12, 2023
Objective Data
-
Labs:
Laboratory Results
11/12/23 11/12/23
06:44 13:03
WBC 7.9
Hgb 11.5 L
Hct 34.6 L
Plt Count 257
APTT 84.1 H 36.1 H
Sodium 137
Potassium 3.9
Chloride 109 H
Carbon Dioxide 25
BUN 23 H
Creatinine 0.6
Glucose 94
Calcium 8.7
Vital Signs:
Vital Signs
Temp Pulse Resp BP Pulse Ox
98.6 F 60 21 136/70 96
11/12/23 11:57 11/12/23 06:00 11/12/23 06:00 11/12/23 06:00 11/12/23 11:35
I&O
11/11/23 11/12/23 11/13/23
06:59 06:59 06:59
Intake Total 537 / 537
Balance 537 / 537
Review of Systems
-
History Source: Patient
EENT: Reports No Symptoms Reported
Respiratory: Reports No Symptoms
Cardiac: Reports No Symptoms
Abdomen/GI: Reports No Symptoms
Genitourinary: Reports No Symptoms
Musculoskeletal: Reports No Symptoms
Skin: Reports No Symptoms
Neuro: Reports No Symptoms
Hematologic / Lymphatic: Reports No Symptoms
Allergy / Immunology: Reports No Symptoms
Physical Exam
-
General: No Apparent Distress and Comfortable
HEENT: Normocephalic and Anicteric
Respiratory: Clear to Auscultation
Cardiac: Regular Rhythm and S1/S2
GI: Soft, Nontender, Nondistended and No Hepatosplenomegaly
Genito-urinary: No Costovertebral Tender
Musculoskeletal: No Clubbing, No Cyanosis and No Edema
Skin: IV Access / Catheter Site
Neuro: AO x 3 and No Motor Deficits
Hematologic / Lymphatic: No Lymphadenopathy
Psych: Calm
[2023-11-12] MEDS: HEPARIN 5400 UNITS IV (14:29)
[2023-11-12] MEDS: LIPITOR 10 MG PO (18:23)
[2023-11-12] MEDS: ELIQUIS 10 MG PO (18:44)
[2023-11-12] MEDS: LUMIGAN 0.01% 1 DROP BOTH EYES (21:34)
--- NOTE | 2023-11-12 22:45 | PTCARENOTE ---
Assumed care of Pt from day RN. Pt made this RN aware that she was very upset with interactions she had with providers that came to see her today. She was pleased with Pulmonary Dr. Emotional support given. Assessment care and vitals as charted.
[2023-11-13] VITALS (10 sets, daily range): BP systolic 125–161; BP diastolic 62–79; PULSE 90; O2SAT 95
[2023-11-13] MEDS: SYNTHROID 25 MCG PO (05:47)
--- NOTE | 2023-11-13 07:09 | CON.ONC ---
Impression
Impression
B/L PE
Right Lung mass 6.0 x 6.5 x 4.7 cm highly suspicious for central bronchogenic carcinoma with subcarinal lymphadenopathy. There are lymph nodes extending into the right suprahilar region into the mediastinum, suspicious for neoplastic lymphadenopathy
Hx high grade stage 0 Bladder Ca s/p TURBT and BCG
Plan
Plan
Regarding pulm embolism, agree with anticoagulation. Patient is currently on apixaban following a short course of IV heparin. Etiology of the pulmonary embolism is likely NOT congenital hypercoagulability but likely related to underlying
malignancy. Lower extremity Dopplers were negative for DVT.
Regarding the right lung mass which radiographically is suspicious for bronchogenic carcinoma, agree with pulmonary consultation.
Patient requires bronchoscopic evaluation. In light of active PE, appropriate to treat patient with repeat imaging and if appropriate bronchoscopy as outlined by pulmonary.
Patient is somewhat angry that we are consulted without a confirmed diagnosis. I explained that this is appropriate but for now she wishes to just follow-up with pulmonary and see us only if or after the diagnosis is confirmed.
I gave patient our business card. For now I will hold off on scheduling follow-up but we will be happy to see her again if needed.
I will sign off as patient her wishes to hold off on additional oncology follow-up until she has a diagnosis and pulmonary as planning outpatient evaluation as mentioned above
Patient History
History of Present Illness
CC: Lung mass
HPI: 83 years old female with history of surgically treated bladder carcinoma, dyslipidemia, hypothyroidism presented to the emergency room with days of right lower chest pain and exertional shortness of breath. A chest x-ray ordered by PCP
suggestive of a RLL mass. Refered to the ER 11/11 for further evaluation . On presentation, she was hypoxic with pulse ox at mid 80s on room air. Underwent chest CT scan that revealed 1. pulmonary embolism and 2. confirmed a suspicious right
lower lobe/hilar process. IV heparin drip started. Oncology & Pulmonary consulted for suspected Lung cancer and management of PE.
Past-Medical/Surgical History
PMH: Bladder cancer (Non-invasive high grade papillary urothelial carcinoma), Hypercholesterolemia and Hypothyroidism
PSH: TURBT 2020 followed by [facility] - Shawn, urology
SH:
Tobacco: Former Smoker (Quit 35 years ago)
Alcohol: None
Drug: None
Personal:
Living: With Family
Employment: Retired
FH: Lung cancer - father and mother
Patient Medication
Medication Instructions Recorded Confirmed Last Taken Type
multivitamin 1 ea PO DAILY Supplement 09/27/18 11/11/23 11/10/23 History
bimatoprost 0.01 % eye drops 1 drp BOTH EYES HS Eye Condition 01/11/21 11/11/23 11/10/23 History
(Lumigan)
simvastatin 20 mg tablet 20 mg PO QPM High Cholesterol 05/29/21 11/11/23 11/10/23 History
Metamucil Q OTHER DAY 11/11/23 1 Day Ago History
~11/10/23
ibuprofen 200 mg tablet (Advil) 400 mg PO Q8HPRN PRN mild pain 11/11/23 11/11/23 Unknown History
levothyroxine 25 mcg tablet 25 mcg PO DAILY Thyroid 11/11/23 11/11/23 Unknown History
(Synthroid)
prednisone 5 mg tablet 5 mg PO NOON Anti-Inflammatory 11/11/23 11/11/23 Unknown History
Active Medications
Generic Name Dose Route Start Last Admin
Trade Name Freq PRN Reason Stop Dose Admin
Albuterol/Ipratropium 3 ml 11/11/23 22:40
Ipratropium 0.5/Albuterol 3 Mg (3 Ml Ampul) INH 12/09/23 22:39
R Q4HPRN PRN
sob/wheeze
Protocol
Apixaban 10 mg 11/12/23 20:00 11/12/23 18:44
Apixaban (Eliquis) 5 Mg Tablet PO 11/19/23 08:01 10 mg
BID PARVEZ Administration
Apixaban 5 mg 11/19/23 20:00
Apixaban (Eliquis) 5 Mg Tablet PO 12/17/23 19:59
BID PARVEZ
Atorvastatin Calcium 10 mg 11/11/23 18:18 11/12/23 18:23
Atorvastatin (Lipitor) 10 Mg Tablet PO 12/09/23 18:17 10 mg
QPM PARVEZ Administration
Bimatoprost 0 drop 11/11/23 22:00 11/12/23 21:34
Bimatoprost 0.01% Oph Marilyn (Lumigan) 2.5 Ml Bottle BOTH EYES 12/09/23 21:59 1 drop
HS PARVEZ Administration
Levothyroxine Sodium 25 mcg 11/11/23 18:18 11/13/23 05:47
Levothyroxine 25 Mcg Tablet PO 12/09/23 18:17 25 mcg
DAILY@0700 PARVEZ Administration
Multivitamins Therapeutic 1 tablet 11/12/23 08:00 11/12/23 08:49
Multivitamin Tablet PO 12/10/23 07:59 1 tablet
DAILY PARVEZ Administration
Pantoprazole Sodium 20 mg 11/11/23 18:18 11/12/23 08:49
Pantoprazole 20 Mg Delayed Release Tablet PO 12/09/23 18:17 20 mg
DAILY PARVEZ Administration
Prednisone 5 mg 11/12/23 12:00 11/12/23 12:57
Prednisone 5 Mg Tablet PO 12/10/23 11:59 5 mg
NOON PARVEZ Administration
Psyllium Hydrophilic Mucilloid 1 packet 11/11/23 21:00 11/11/23 21:44
Psyllium Packet PO 12/09/23 20:59 1 packet
Q48H PARVEZ Administration
Sodium Chloride 0 flush 11/11/23 19:00
Sodium Chloride 0.9% (Flush) Syringe IV 12/09/23 18:59
PER PROTOCOL PARVEZ
Review of Systems
-
History Source: Patient
Constitutional: Reports No Symptoms
EENT: Reports No Symptoms
Respiratory: Reports Trouble Breathing
Cardiac: Reports Chest Pain
GI: Reports No Symptoms
: Reports No Symptoms
Skin: Reports No Symptoms
Neuro: Reports No Symptoms
Hematologic/Lymphatic: Reports No Symptoms
Physical Exam
-
General: Well Developed, Well Nourished and No Apparent Distress
HEENT: Negative Jaundice
Cardiology: Normal Sinus Rhythm, S1 and S2
Pulmonary: Clear
GI: Soft
Musculoskeletal: No Clubbing, No Cyanosis and No Edema
Neurology: Non Focal
Labs
Lab Results
WBC 7.9 10^3/uL (4.8-10.8) 11/12/23 06:44
RBC 3.85 10^6/uL (4.20-5.40) L 11/12/23 06:44
Hgb 11.5 g/dL (12.0-16.0) L 11/12/23 06:44
Hct 34.6 % (37.0-47.0) L 11/12/23 06:44
MCV 89.9 fL (81.0-99.0) 11/12/23 06:44
MCH 29.9 pg (27.0-31.0) 11/12/23 06:44
MCHC 33.2 g/dL (33.0-37.0) 11/12/23 06:44
RDW 14.7 % (11.5-14.5) H 11/12/23 06:44
Plt Count 257 10^3/uL (130-400) 11/12/23 06:44
MPV 10.1 fL (7.4-10.4) 11/12/23 06:44
Abs Immat Gran (auto) 0.1 10^3/uL (0-0.05) H 11/12/23 06:44
Absolute Neuts (auto) 5.8 10^3/uL (1.4-6.5) 11/12/23 06:44
Absolute Lymphs (auto) 0.9 10^3/uL (1.2-3.4) L 11/12/23 06:44
Absolute Monos (auto) 0.9 10^3/uL (0.1-0.6) H 11/12/23 06:44
Absolute Eos (auto) 0.2 10^3/uL (0-0.7) 11/12/23 06:44
Absolute Basos (auto) 0.0 10^3/uL (0-0.2) 11/12/23 06:44
Immature Gran % 0.9 % (0-0.5) H 11/12/23 06:44
Neutrophils % 74.1 % (42.2-75.2) 11/12/23 06:44
Lymphocytes % 11.5 % (20.5-51.1) L 11/12/23 06:44
Monocytes % 11.0 % (1.7-9.3) H 11/12/23 06:44
Eosinophils % 2.2 % (0-6) 11/12/23 06:44
Basophils % 0.3 % (0-2) 11/12/23 06:44
Creatinine 0.6 mg/dL (0.6-1.0) 11/12/23 06:44
Imaging:
Chest CTA
IMPRESSION: Examination is positive for bilateral pulmonary embolism.
Findings suggesting mild right heart strain.
Central right lung mass, which very likely represents bronchogenic carcinoma.
Patchy parenchymal opacity within the right lung beyond the mass, which is likely postobstructive pneumonia and/or atelectasis.
Trace amount of right pleural fluid.
Right suprahilar and mediastinal lymphadenopathy, which is likely neoplastic lymphadenopathy.
Mild fatty infiltration of the liver.
Details:
There is a central right hilar and infrahilar mass, and appears to involve the right upper lobe, right middle lobe, with greatest involvement in the anterior aspect of the right lower lobe. This mass measures approximately 6.0 cm craniocaudal by 6.5
cm AP by 4.7 cm transverse. The mass invades the lateral aspect of the bronchus intermedius, extending into the lumen, as seen on image 41 of series 402. The mass results in encasement and narrowing of the right middle lobe and right lower lobe
pulmonary arteries.
This mass is highly suspicious for central bronchogenic carcinoma.
Note is also made of subcarinal lymphadenopathy. There are lymph nodes extending into the right suprahilar region into the mediastinum, suspicious for neoplastic lymphadenopathy.
Vital Signs
Vital Signs
Temp Pulse Resp BP Pulse Ox
97.7 F 64 22 131/66 93
11/13/23 02:52 11/13/23 06:00 11/13/23 06:00 11/13/23 06:00 11/13/23 06:00
[2023-11-13] MEDS: THERAGRAN 1 TABLET PO (07:47)
[2023-11-13] MEDS: PROTONIX 20 MG PO (07:47)
[2023-11-13] MEDS: ELIQUIS 10 MG PO ×2 (07:47→21:51)
--- NOTE | 2023-11-13 08:40 | PTCARENOTE ---
Patient received from production supervisor off shift. Patient resting comfortable in bed. AAO, VSS. No events noted overnight. No complaints of pain at this time. Patient still on O2, will continue to attempt to wean. Assess home O2 needs. Eliquis resumed last
evening. Patient to get up to chair for breakfast. Call chambers in reach.
--- NOTE | 2023-11-13 09:13 | W.PN.PUL3 ---
Today's Communication / Plan
-
CT chest reviewed, will need outpatient FU for next steps
She is improving, no further sob/chest pain
Home O2 eval ordered
PT/OT eval
Hopefully can discharge in next 24 hours if able to set up home needs
Outpatient pulmonary FU recommended
Assessment
-
83-year-old female former tobacco smoker with past medical history of bladder cancer on BCG, hypothyroidism, and hyperlipidemia who presents with right upper quadrant pain x 2 days.� Patient afebrile in the ER to 90.3 �F, pulse rate 75, BP: 98/79,
SpO2 92% on room air.� Labs suggestive of leukocytosis with WBC 11.2, Hb 13 and platelets 271.� Urinalysis shows +2 leukocyte esterase suggestive of UTI.� Right upper quadrant ultrasound showed gallstones without evidence of acute cholecystitis.�
While in the ER, she developed chest discomfort hypoxia and CTA chest was performed showing PE.
Acute hypoxic respiratory failure due to acute PE in setting of R-sided PNA + extrinsic compression of bronchus intermedius by R-hilar mass
Right upper lobe/right lower lobe pneumonia likely representing postobstructive pneumonia in setting of right hilar mass (suspected lung cancer)
Submassive pulmonary embolism with high risk features
6.5cm Right hilar mass with right-sided mediastinal/hilar lymphadenopathy - suspected to be bronchogenic carcinoma with localized spread
RUQ pain with 1.8cm gallstone and without cholecystitis --> RUQ pain likely referred pain in setting of acute PE
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
Recurrent Bladder Cancer (02/2017, 12/2020) s/p �TURBT x 3, BLC: Ta, High-grade and CIS�
s/p Blue-light cystoscopy with biopsy: no cancer� � 05/2021 �
Former tobacco use disorder
Hyperlipidemia
Right hip arthritis
Cataracts
Glaucoma
Impaired vision
Hypothyroidism
Family history of lung cancer
Plan:
Currently on 6L with sats at 96%
She has no prior known history of lung disease in past
Former smoker, 1/2-1 PPD for 20 years, quit many years ago
Family history +lung cancer in her father, diagnosed in his 60s
Home O2 eval
PE noted on CT, reviewed
Initiated on systemic anticoagulation - heparin gtt and eventually NOAC
IR reviewed imaging --> considering clot burden are distal and pt has mild RV strain with negative troponin, no need for thrombolytic therapy or thrombo-/-embolectomy
Eventual transition to OAC
Maintain MAP>65
Monitor for sudden drop in SBP>15-20% and/or HR>120 as this could indicate developing obstructive shock
Pain control PRN
Reviewed findings of lung mass with patient
This is a new finding
Has history of localized bladder cancer, was finishing treatment
We reviewed next steps can be done as OP, FU CT with evaluation for need for tissue biopsy
Outpatient pulmonary FU recommended
Procal neg
Not on abx
Sputum culture if able
Check TTE, results pending
proBNP neg 148
Check LE duplex
Aspiration precautions
Advance diet as tolerated
Reviewed care plan with patient
She has changed providers and is requesting another provider change
Care plan communicated with team
Diagnostic Data
CTA Chest 11-11-2023: �In the left, there is a small amount of embolus extending into the proximal HILARY anterior segment branch. There is embolus within the distal aspect of the left upper lobe main pulmonary artery, and extending into the left lower
lobe proximal pulmonary artery. On the right, there is narrowing of RML and RLL pulmonary artery branches due to a central mass lesion. There are subtle filling defects within the middle lobe and lower lobe segmental branches, compatible with
right-sided emboli. Interventricular septum is slightly deviated toward the left, particularly toward the base of the left ventricle. The right ventricle is slightly larger than the left ventricle. Findings would suggest a component of right heart
strain.
There is a central right hilar and infrahilar mass, and appears to involve the right upper lobe, right middle lobe, with greatest involvement in the anterior aspect of the right lower lobe. This mass measures approximately 6.0 cm craniocaudal by 6.5
cm AP by 4.7 cm transverse. The mass invades the lateral aspect of the bronchus intermedius, extending into the lumen, as seen on image 41 of series 402. The mass results in encasement and narrowing of the right middle lobe and right lower lobe
pulmonary arteries. This mass is highly suspicious for central bronchogenic carcinoma.
Note is also made of subcarinal lymphadenopathy. There are lymph nodes extending into the right suprahilar region into the mediastinum, suspicious for neoplastic lymphadenopathy.
Patchy parenchymal opacity within the more distal aspect of the right lower lobe, the right middle lobe, and the inferolateral aspect of the right upper lobe, which is most likely postobstructive pneumonia and/or atelectasis.
Duplex 11/11/23- IMPRESSION:� No no findings to confirm deep venous thrombosis of the lower extremities bilaterally.
Abdominal US 11-11-2023:
1.8 cm gallstone is present within the gallbladder. There are no secondary findings to suggest acute cholecystitis. No evidence of biliary ductal dilation.
Mild fatty infiltration of the liver.
Subjective Data
-
Date of Service:
Date of Service: November 13, 2023
Chief Complaint: Pulmonary Follow Up
Subjective:
patient seen and examined, no acute events on
feels her sob and chest pain resolved completely
remains on 6L nc, sats >96%
Objective Data
Data Reviewed
Vital Signs / I&O / Oxygen:
Vital Signs
Temp Pulse Resp BP Pulse Ox
98.3 F 64 22 131/66 93
11/13/23 07:21 11/13/23 06:00 11/13/23 06:00 11/13/23 06:00 11/13/23 06:00
Intake and Output
11/12/23 11/13/23 11/14/23
06:59 06:59 06:59
Intake Total 537 / 537 240 / 240
Balance 537 / 537 240 / 240
SaO2 93
Nasal Cannula flow liters per 6
minute
Physical Exam
General: Comfortable and Other (NAD, obese)
HEENT: Normocephalic, Anicteric and Moist Mucous Membranes
Cardiovascular: S1-S2 and Regular Rhythm
Respiratory: Clear (decreased BS at bases) and Non-Labored Respirations
GI: Soft, Non Distended and Non Tender
Neurology: Awake, Alert, Oriented, AO x 3 and No Motor Deficits
Skin: Warm, Dry and Good Color
Labs/Micro/Reports
Lab Data
11/12/23 06:44
11/12/23 06:44
Laboratory Results
11/12/23
13:03
APTT 36.1 H
Microbiology
11/11/23 12:03 Urine Urine Culture - Final
No Significant Growth
--- NOTE | 2023-11-13 12:33 | W.PN.HOSP.TC ---
Today's Communication/Plan
-
Wean oxygen as tolerated
Monitor closely on Eliquis
Monitor blood pressure
Home O2 eval prior to discharge
Assessment / Plan
Assessment / Plan
Assessment:
Anahy Mcgill, 83 year-old female, presented to the emergency with progressively worsening right lower chest pain and exertional dyspnea on 11-11-23. She has had mild intermittent nonproductive cough for the past few weeks, and had a chest x-ray
ordered by primary physician close to a week ago with report showing right lower lobe process with suspicion for mass/carcinoma. When she started experiencing chest pain and progressive dyspnea, she came to the ED. On admission, she was noted to be
hypoxic with pulse ox at mid-80s on room air. Chest CT was positive for bilateral pulmonary embolism, central right lung mass (which very likely represents bronchogenic carcinoma with right suprahilar and mediastinal lymphadenopathy). Echo was
normal. She was treated with heparin IV, transitioned to apixaban on 11-12-23.
Bilateral pulmonary embolism
- She came to the emergency with progressive right chest pain and exertional dyspnea on 11-11-23.
- On admission, she was noted to be hypoxic with pulse ox at mid-80s on room air.
- CTA chest showed bilateral pulmonary embolism with evidence of right heart strain.
- Given hemodynamic stability, there was no clear indication for lytic treatment and was evaluated by interventional radiology.
- She was treated with IV heparin, and transitioned to apixaban on 11-12-23.
- Echocardiogram and peripheral lower extremity ultrasound were unremarkable on 11-12-23.
- Remains on 6 L of oxygen. Discussed with RN to start weaning down. Home O2 eval prior to discharge.
- Monitor vital signs closely for severe acute drop in blood pressure and severe tachycardia which could be a sign of obstructive pathology and will require transfer to ICU.
- No previous history of DVT/PE, or known history of blood or clotting disorders.
Suspected bronchogenic LESION
- [id number] history; quit 40 years ago.
- Her father has a history of lung cancer (he was cigar smoker), and mother also had lung cancer and she from acute kidney failure.
- Pulmonary following-will plan for outpatient evaluation with repeat imaging and if positive for persistent lesion then tissue biopsy
-Oncology correspondence noted.
Right lower lobe infiltrate
- Atelectasis versus postobstructive process/pneumonia.
- Afebrile, nonproductive cough, white count and procalcitonin within normal limits
- Less likely to be infectious.
- Monitor closely while not on antibiotics.
History of bladder cancer
- She is currently finishing treatment with BCG.
- She was diagnosed with bladder cancer about 3-4 years ago.
Hypothyroidism
- Continue levothyroxine
Dyslipidemia
- Continue statin
GI prophylaxis
- PPI given anticoagulation.
DVT prophylaxis
-Eliquis
Code status
- Full.
Discussed case with RN
Discussed case in detail with pulmonary
Anticipated Discharge: > 48 hours
Subjective/Interval History
-
Date of Service: November 13, 2023
Took over care from another provider this morning
Sitting in chair
Denies chest pain or shortness of breath at rest or exertion
Remains on 6L of oxygen
Heparin gtt was stopped on 11/12/23 and transitioned to Eliquis overnight
not on home oxygen
Objective Data
-
Vital Signs:
Vital Signs
Temp Pulse Resp BP Pulse Ox
98.0 F 64 22 131/66 93
11/13/23 11:24 11/13/23 06:00 11/13/23 06:00 11/13/23 06:00 11/13/23 12:11
I&O
11/12/23 11/13/23 11/14/23
06:59 06:59 06:59
Intake Total 537 / 537 240 / 240
Balance 537 / 537 240 / 240
Physical Exam
-
General: Well Developed, Well Nourished, No Apparent Distress and Comfortable
HEENT: Normocephalic, Moist Mucous Membranes, Anicteric and Oxygen (6L)
Respiratory: Clear to Auscultation
Cardiac: Regular Rhythm and S1/S2
GI: Soft, Nontender, Nondistended and No Hepatosplenomegaly
Rectal: Deferred by Provider
Genito-urinary: Deferred by me
Musculoskeletal: No Clubbing, No Cyanosis and No Edema
Skin: IV Access / Catheter Site
Neuro: Awake, Alert, Oriented, AO x 3, No Motor Deficits and Nonfocal/Grossly Intact
Psych: Calm
Data Reviewed
-
Total Time Spent with Patient (in minutes): 55
[2023-11-13] MEDS: DELTASONE 5 MG PO (12:59)
--- NOTE | 2023-11-13 16:18 | CM ---
Addendum entered by Gilma Almonte RN 11/13/23 16:25:
Home O2 Assessment noted: O2 sat 88% RA ambulating.
Messages with Dr Ramirez; she wants to repeat home O2 assessment tomorrow and will then decide if home O2 will be ordered.
Plan follow up tomorrow with Dr Ramirez if home O2 will be ordered, after Home O2 Assessment repeated on 11/14.
Plan home.
Original Note:
Patient who resides at [facility] with Dx Acute hypoxic respiratory failure, Acute pulmonary embolism. Room air. Home O2 Assessment. Per nurse assessment; ambulatory in room, assist of 1.
Met with patient and offered VN. Patient says she does not thinks she wants [facility] VN when she goes home.
Patient was aware that home O2 assessment would be done today. The patient clarified that she was going to decide if she wants home O2 after talking with Dr Ramirez. She said when her went home no one told them O2 was ordered until it was
delivered. CM tried to reassure her she could decide if she wants home O2 and CM should communicate home O2 options to her, including which DME provider she wants to use. She thinks her has [employer] for his oxygen however she is not
sure if she is satisfied with their service. Patient may also want POC tank for maximal mobility.
Plan follow up after home O2 assessment.
[2023-11-13] MEDS: LIPITOR 10 MG PO (17:50)
[2023-11-13] MEDS: MELATONIN 5 MG PO (21:51)
[2023-11-13] MEDS: METAMUCIL, KONSYL 1 PACKET PO (21:51)
[2023-11-13] MEDS: LUMIGAN 0.01% 1 DROP BOTH EYES (21:51)
[2023-11-14] VITALS (8 sets, daily range): BP systolic 111–138; BP diastolic 63–102
[2023-11-14 03:55] LABS: % Basophils 0.5 % (0-2); % Eosinophils 4.1 % (0-6); % Immature Granulocytes 1.1 % (0-0.5); % Lymphocytes 11.5 % (20.5-51.1); % Monocytes 10.7 % (1.7-9.3); % Neutrophils 72.1 % (42.2-75.2); Absolute Eosinophils 0.3 10^3/uL (0-0.7); Absolute Immature Granulocytes 0.1 10^3/uL (0-0.05); Absolute Monocytes 0.9 10^3/uL (0.1-0.6); Hemoglobin 11.5 g/dL (12.0-16.0); Mean Corp Hgb Conc. 33.8 g/dL (33.0-37.0); Mean Corpuscular Hgb 29.8 pg (27.0-31.0); Mean Corpuscular Volume 88.1 fL (81.0-99.0); Mean Platelet Volume 9.8 fL (7.4-10.4); Nucleated Red Blood Cells % 0 %; Platelet Count 313 10^3/uL (130-400); Red Blood Cell Count 3.86 10^6/uL (4.20-5.40); Red Cell Dist. Width 14.7 % (11.5-14.5); White Blood Cell Count 8.3 10^3/uL (4.8-10.8)
[2023-11-14 03:59] LABS: INR 1.59
[2023-11-14 04:00] LABS: APTT 37.7 Sec (23.4-35.0)
[2023-11-14 04:11] LABS: Blood Urea Nitrogen 25 mg/dl (7-17); Calcium 9.3 mg/dl (8.4-10.2); Carbon Dioxide 23 mmol/L (22-30); Chloride 105 mmol/L (98-107); Estimated Creatinine Clearance 57 ml/min; Glucose 112 mg/dl (70-99); Potassium 4.3 mmol/L (3.5-5.1); Sodium 137 mmol/L (135-145); eGFR > 60.00
--- NOTE | 2023-11-14 05:14 | PTCARENOTE ---
Received patient up in chair, assisted to bed; pt has steady gait. Patient requested a sleep aid overnight; order for melatonin received and administered per NOV. Pt able to sleep in between cares. Tele showing NSR. Sp02 decreases to 87% on RA while
sleeping; 3L NC placed and Sp02 increased to mid 90s. VS otherwise stable. Denies any pain. Tolerating Eliquis. Call chambers within reach. Pt calls appropriately.
[2023-11-14] MEDS: SYNTHROID 25 MCG PO (06:18)
[2023-11-14] MEDS: ELIQUIS 10 MG PO (08:46)
[2023-11-14] MEDS: THERAGRAN 1 TABLET PO (08:46)
[2023-11-14] MEDS: PROTONIX 20 MG PO (08:46)
--- NOTE | 2023-11-14 09:09 | W.PN.PUL3 ---
Today's Communication / Plan
-
reviewed care plan with patient again today
home O2 set up per team, reviewed with patient
outpatient pulmonary fu recommended again today, we reviewed arrangements
transitioned to oac
discharge planning per team
Assessment
-
83-year-old female former tobacco smoker with past medical history of bladder cancer on BCG, hypothyroidism, and hyperlipidemia who presents with right upper quadrant pain x 2 days.� Patient afebrile in the ER to 90.3 �F, pulse rate 75, BP: 98/79,
SpO2 92% on room air.� Labs suggestive of leukocytosis with WBC 11.2, Hb 13 and platelets 271.� Urinalysis shows +2 leukocyte esterase suggestive of UTI.� Right upper quadrant ultrasound showed gallstones without evidence of acute cholecystitis.�
While in the ER, she developed chest discomfort hypoxia and CTA chest was performed showing PE.
Acute hypoxic respiratory failure due to acute PE in setting of R-sided PNA + extrinsic compression of bronchus intermedius by R-hilar mass
Right upper lobe/right lower lobe pneumonia likely representing postobstructive pneumonia in setting of right hilar mass (suspected lung cancer)
Submassive pulmonary embolism with high risk features
6.5cm Right hilar mass with right-sided mediastinal/hilar lymphadenopathy - suspected to be bronchogenic carcinoma with localized spread
RUQ pain with 1.8cm gallstone and without cholecystitis --> RUQ pain likely referred pain in setting of acute PE
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
Recurrent Bladder Cancer (02/2017, 12/2020) s/p �TURBT x 3, BLC: Ta, High-grade and CIS�
s/p Blue-light cystoscopy with biopsy: no cancer� � 05/2021 �
Former tobacco use disorder
Hyperlipidemia
Right hip arthritis
Cataracts
Glaucoma
Impaired vision
Hypothyroidism
Family history of lung cancer
Plan:
Initially on 6L with sats at 96%, weaned to RA
She has no prior known history of lung disease in past
Former smoker, 1/2-1 PPD for 20 years, quit many years ago
Family history +lung cancer in her father, diagnosed in his 60s
Home O2 eval--no need for O2 at rest, does require 2L NC with exertion, home O2 set up
PE noted on CT, reviewed
Initiated on systemic anticoagulation - heparin gtt and eventually NOAC
IR reviewed imaging --> considering clot burden are distal and pt has mild RV strain with negative troponin, no need for thrombolytic therapy or thrombo-/-embolectomy
Eventual transition to OAC
Maintain MAP>65
Monitor for sudden drop in SBP>15-20% and/or HR>120 as this could indicate developing obstructive shock
Pain control PRN
Reviewed findings of lung mass with patient
This is a new finding, we have reviewed plan in detail everyday
Has history of localized bladder cancer, was finishing treatment
We reviewed next steps can be done as OP, FU CT with evaluation for need for tissue biopsy
Outpatient pulmonary FU recommended
Procal neg
Not on abx
Sputum culture if able
TTE results reviewed, normal
proBNP neg 148
LE duplex neg
Aspiration precautions
Advance diet as tolerated
Reviewed care plan with patient
She has changed providers and is requesting another provider change
Care plan communicated with team
Diagnostic Data
CTA Chest 11-11-2023: �In the left, there is a small amount of embolus extending into the proximal HILARY anterior segment branch. There is embolus within the distal aspect of the left upper lobe main pulmonary artery, and extending into the left lower
lobe proximal pulmonary artery. On the right, there is narrowing of RML and RLL pulmonary artery branches due to a central mass lesion. There are subtle filling defects within the middle lobe and lower lobe segmental branches, compatible with
right-sided emboli. Interventricular septum is slightly deviated toward the left, particularly toward the base of the left ventricle. The right ventricle is slightly larger than the left ventricle. Findings would suggest a component of right heart
strain.
There is a central right hilar and infrahilar mass, and appears to involve the right upper lobe, right middle lobe, with greatest involvement in the anterior aspect of the right lower lobe. This mass measures approximately 6.0 cm craniocaudal by 6.5
cm AP by 4.7 cm transverse. The mass invades the lateral aspect of the bronchus intermedius, extending into the lumen, as seen on image 41 of series 402. The mass results in encasement and narrowing of the right middle lobe and right lower lobe
pulmonary arteries. This mass is highly suspicious for central bronchogenic carcinoma.
Note is also made of subcarinal lymphadenopathy. There are lymph nodes extending into the right suprahilar region into the mediastinum, suspicious for neoplastic lymphadenopathy.
Patchy parenchymal opacity within the more distal aspect of the right lower lobe, the right middle lobe, and the inferolateral aspect of the right upper lobe, which is most likely postobstructive pneumonia and/or atelectasis.
Duplex 11/11/23- IMPRESSION:� No no findings to confirm deep venous thrombosis of the lower extremities bilaterally.
Abdominal US 11-11-2023:
1.8 cm gallstone is present within the gallbladder. There are no secondary findings to suggest acute cholecystitis. No evidence of biliary ductal dilation.
Mild fatty infiltration of the liver.
ECHO 11/12/23- Normal biventricular size and systolic function without regional wall motion�abnormality.�No significant valvular disease.�No prior study available for comparison.
Subjective Data
-
Date of Service:
Date of Service: November 14, 2023
Chief Complaint: Pulmonary Follow Up
Subjective:
no acute events ON
upset about discussions that she has had with providers
Objective Data
Data Reviewed
Vital Signs / I&O / Oxygen:
Vital Signs
Temp Pulse Resp BP Pulse Ox
97.6 F 88 24 133/92 91
11/14/23 03:43 11/14/23 08:00 11/14/23 08:00 11/14/23 08:00 11/14/23 08:00
Intake and Output
11/13/23 11/14/23 11/15/23
06:59 06:59 06:59
Intake Total 240 / 240 1040 / 1040
Balance 240 / 240 1040 / 1040
SaO2 91
Nasal Cannula flow liters per 3
minute
Physical Exam
General: Comfortable and Other (NAD, obese)
HEENT: Normocephalic, Anicteric and Moist Mucous Membranes
Cardiovascular: S1-S2 and Regular Rhythm
Respiratory: Clear (decreased BS at bases) and Non-Labored Respirations
GI: Soft, Non Distended and Non Tender
Neurology: Awake, Alert, Oriented, AO x 3 and No Motor Deficits
Skin: Warm, Dry and Good Color
Labs/Micro/Reports
Lab Data
11/14/23 03:32
11/14/23 03:32
Laboratory Results
11/14/23
03:32
PT 19.0 H
INR 1.59
APTT 37.7 H
Microbiology
11/11/23 12:03 Urine Urine Culture - Final
No Significant Growth
--- NOTE | 2023-11-14 09:35 | CM ---
Patient seen at bedside with physician. BAILEY reviewed and signed form placed on chart. Patient for home O2 assessment and CM will work with patient and company that currently provides home O2 for her . Patient states that she does not want [employer]
supports and understands that she will follow up with her software sales representative for next steps. CM will continue to follow for discharge planning needs.
Plan; home with home O2 vs home with no needs.
--- NOTE | 2023-11-14 09:43 | W.PN.HOSP.TC ---
Today's Communication/Plan
-
d/c with home O2
Assessment / Plan
Assessment / Plan
Assessment:
OK for d/c--Patient is in need of oxygen at 2 liters/minute via nasal cannula continuously due to pulse oximetry of 87% on room air at rest. Oxygen will help to improve hypoxemia. Patient is mobile within the home. DuoNeb therapy has been tried and
is ineffective in treating hypoxemia related symptoms. Oxygen is needed to improve symptoms.
Anahy Mcgill, 83 year-old female, presented to the emergency with progressively worsening right lower chest pain and exertional dyspnea on 11-11-23. She has had mild intermittent nonproductive cough for the past few weeks, and had a chest x-ray
ordered by primary physician close to a week ago with report showing right lower lobe process with suspicion for mass/carcinoma. When she started experiencing chest pain and progressive dyspnea, she came to the ED. On admission, she was noted to be
hypoxic with pulse ox at mid-80s on room air. Chest CT was positive for bilateral pulmonary embolism, central right lung mass (which very likely represents bronchogenic carcinoma with right suprahilar and mediastinal lymphadenopathy). Echo was
normal. She was treated with heparin IV, transitioned to apixaban on 11-12-23.
Bilateral pulmonary embolism
- She came to the emergency with progressive right chest pain and exertional dyspnea on 11-11-23.
- On admission, she was noted to be hypoxic with pulse ox at mid-80s on room air.
- CTA chest showed bilateral pulmonary embolism with evidence of right heart strain.
- Given hemodynamic stability, there was no clear indication for lytic treatment and was evaluated by interventional radiology.
- She was treated with IV heparin, and transitioned to apixaban on 11-12-23.
- Echocardiogram and peripheral lower extremity ultrasound were unremarkable on 11-12-23.
- Remains on 6 L of oxygen. Discussed with RN to start weaning down. Home O2 eval prior to discharge reveals resting pulse ox at 87%
- Monitor vital signs closely for severe acute drop in blood pressure and severe tachycardia which could be a sign of obstructive pathology and will require transfer to ICU.
- No previous history of DVT/PE, or known history of blood or clotting disorders.
Suspected bronchogenic LESION
- [id number] history; quit 40 years ago.
- Her father has a history of lung cancer (he was cigar smoker), and mother also had lung cancer and she from acute kidney failure.
- Pulmonary following-will plan for outpatient evaluation with repeat imaging and if positive for persistent lesion then tissue biopsy
-Oncology correspondence noted.
Right lower lobe infiltrate
- Atelectasis versus postobstructive process/pneumonia.
- Afebrile, nonproductive cough, white count and procalcitonin within normal limits
- Less likely to be infectious.
- Monitor closely while not on antibiotics.
History of bladder cancer
- She is currently finishing treatment with BCG.
- She was diagnosed with bladder cancer about 3-4 years ago.
Hypothyroidism
- Continue levothyroxine
Dyslipidemia
- Continue statin
GI prophylaxis
- PPI given anticoagulation.
DVT prophylaxis
-Eliquis
Code status
- Full.
Anticipated Discharge: Today
Subjective/Interval History
-
Date of Service: November 14, 2023
pt without SOB, chest pain--sitting eating breakfast
Objective Data
-
Labs:
Laboratory Results
11/14/23
03:32
WBC 8.3
Hgb 11.5 L
Hct 34.0 L
Plt Count 313 D
PT 19.0 H
INR 1.59
APTT 37.7 H
Sodium 137
Potassium 4.3
Chloride 105
Carbon Dioxide 23
BUN 25 H
Creatinine 0.7
Glucose 112 H
Calcium 9.3
Vital Signs:
max temp for 24 hours
11/13/23
15:31
Temp 98.2 F
Vital Signs
Temp Pulse Resp BP Pulse Ox
98.2 F 88 24 133/92 91
11/14/23 07:36 11/14/23 08:00 11/14/23 08:00 11/14/23 08:00 11/14/23 08:00
I&O
11/13/23 11/14/23 11/15/23
06:59 06:59 06:59
Intake Total 240 / 240 1040 / 1040
Balance 240 / 240 1040 / 1040
Review of Systems
-
All other systems: Reviewed and negative
Physical Exam
-
General: Well Developed, Well Nourished and No Apparent Distress
HEENT: Normocephalic and Atraumatic
Respiratory: Clear to Auscultation; Negative Wheezes, Rales, Rhonchi or Crackles
Cardiac: Regular Rhythm and S1/S2; Negative Murmur
GI: Soft, Nontender, Nondistended and Normal Bowel Sounds
Musculoskeletal: No Clubbing, No Cyanosis and No Edema
Neuro: Awake
Psych: Calm
--- NOTE | 2023-11-14 10:03 | RESPNOTE ---
Ambulation pulse ox done at this time
Resting RA-92% Pt walked approx 50Ft on RA-86%
Placed 2 liters in nares 92-94%.. continued to walk 350Ft with 2 liters 94%
Back in room sitting in chair resting on RA 93%
--- NOTE | 2023-11-14 10:27 | PTCARENOTE ---
Patient slept well last night. Offers no complaints. Possible discharge today with home oxygen.
--- NOTE | 2023-11-14 10:31 | CM ---
Addendum entered by Dia Mc 11/14/23 14:21:
O2 delivered and with patient. Patient to have home concentrator delivered when she is home.
Addendum entered by Dia Mc 11/14/23 11:25:
documentation faxed to [facility], awaiting confirmation of acceptance and delivery. Per physician patient should have continuous O2 and may need Etank per [facility] apprenticeship training representative.
Original Note:
patient home O2 is directly through [employer]. Patient with no preference for local companies. CM sent fax to [facility] to determine if they were able to assist with providing home O2. CM also reviewed with patient and she is in
agreement with the plan.Patient for discharge home today and states that she will call her son to be on 'stand by'. Patient very confused by the process. CM will continue to follow for discharge planning needs.
Plan; discharge home with home O2 from [facility].
[2023-11-14] MEDS: DELTASONE 5 MG PO (13:09)
--- NOTE | 2023-11-15 12:50 | W.DCSUMMARY ---
Discharge Summary
Discharge Data
Date of Admission: 11/11/23
Date of Discharge: 11/14/23
-
Pending Results: No
Hospital Course
Primary care physician : Thais Schmidt
Principal Discharge diagnosis : Bilateral pulmonary embolism, suspected bronchogenic lesion
Chronic Discharge diagnosis : History of bladder cancer, hypothyroidism, dyslipidemia
Hospital Course : Patient was an 83-year-old female with a history of surgically treated bladder carcinoma, hyperlipidemia, hypothyroidism who presented with days of right lower chest pain. She complained of exertional shortness of breath. She
denied syncope, fever. She had a mild intermittent nonproductive cough. Chest x-ray showed a right lower lobe process with suspicion for mass/carcinoma. Patient had progressive and worsening short of breath and presented to the ED. She is
hemodynamically stable although hypoxic with pulse ox in the mid 80s. CAT scan of the chest was positive for pulmonary embolism and right lower lobe/hilar process. Patient was admitted and placed on IV heparin drip as well as oxygen.
Problem #1: Bilateral pulmonary embolism. Patient was admitted and started on IV heparin drip. She was seen in consultation by pulmonary. At 1 point she was on 6 L of oxygen and that has been weaned down however, she does qualify for home oxygen
as her resting pulse ox on room air is 87%. She was not a candidate for lytic therapy. She has been converted over to Eliquis.
Problem #2: Suspected bronchogenic lesion. Patient was seen in consultation by pulmonary as mentioned as well as oncology. Unfortunately, the patient became irritated and upset that oncology saw her without a diagnosis of cancer. Despite having
it explained to her that this is concerning for cancer and that getting them involved early helps with moving the treatment forward, patient will not follow-up with oncology until her cancer diagnosis is made. What makes this more challenging, is
the fact that the patient is on Eliquis and will need to be on Eliquis for the pulmonary embolism. Biopsy was not done here in the hospital prior to starting this. She will follow-up in 4 to 6 weeks with pulmonary, obtain a scan at that point, and
pulmonary will decide next steps.
Problem #3: All other medical issues. These include History of bladder cancer, hypothyroidism, dyslipidemia. These medical issues were stable during her hospitalization. Medications were continued as able.
Patient qualifies for home oxygen at discharge and this has been set up. Patient is stable for discharge at this time. If there are any questions regarding this dictation or her hospital stay, please not hesitate to call. Our office number is
[phone].
Important imaging findings :
CT SCAN CHEST IMPRESSION: Examination is positive for bilateral pulmonary embolism. Finding was [place] text to Alex Leonardo in the emergency department on November 11, 2023, with acknowledgment.
Findings suggesting mild right heart strain.
Central right lung mass, which very likely represents bronchogenic carcinoma.
Patchy parenchymal opacity within the right lung beyond the mass, which is likely postobstructive pneumonia and/or atelectasis.
Trace amount of right pleural fluid.
Right suprahilar and mediastinal lymphadenopathy, which is likely neoplastic lymphadenopathy.
Mild fatty infiltration of the liver.
Discharge Plan
-
Patient Disposition: Home (Routine Discharge)
Discharge Diagnosis/Procedures: Bilateral pulmonary embolism resulting in acute hypoxemic respiratory insufficiency/failure, suspected bronchogenic lesion found on CAT scan, right lower lobe infiltrate, history of bladder cancer, hypothyroidism,
dyslipidemia
Condition: Good
Diet: As tolerated and Regular
Activity: As tolerated
Driving Restrictions: As prior to admission
Bathing Restrictions: None
Referrals:
Hi Anderson MD [Active] - in four to six weeks (Obtain Ct Chest without Contrast just prior to outpatient appt.)
Thais Schmidt MD [Family Provider] - in less than 1 week
Prescriptions:
New
Eliquis 5 mg Tablet
10 mg PO BID Qty: 28 0RF
Rx Instructions:
take for 1 week
Eliquis 5 mg Tablet
5 mg PO BID Qty: 60 0RF
Rx Instructions:
start AFTER finishing the 10 mg twice daily x 1 week
pantoprazole 20 mg Tablet,Delayed Release (Dr/Ec)
20 mg PO DAILY Qty: 30 0RF
Continued
multivitamin 1 EACH tablet
1 ea PO DAILY
Lumigan 1 DROP drops
1 drp BOTH EYES HS
simvastatin 20 MG tablet
20 mg PO QPM
prednisone 5 mg Tablet
5 mg PO NOON
levothyroxine [Synthroid] 25 mcg Tablet
25 mcg PO DAILY
Metamucil
Q OTHER DAY
Discontinued
ibuprofen [Advil] 200 mg Tablet
400 mg PO Q8HPRN PRN (Reason: mild pain)
Discharge Orders:
Discharge Patient (As Directed); Ordered 11/14/23
Ordered By: Marilu Segovia
Discharge Date and Time
Discharge Date/Time: 11/14/23 15:23
== END 2023-11-14 15:23 | disposition home or self-care (01) | DRG 175 ==
LOC: IMU 16:47
PROVIDERS: Hospitalist; Physician Assistant; ADMITTING PHYSICIAN Internal Medicine; ATTENDING PHYSICIAN Internal Medicine; CONSULT PHYSICIAN Internal Medicine Critical Care Medicine; EMERGENCY PHYSICIAN Emergency Medicine; FAMILY PHYSICIAN Internal Medicine Geriatric Medicine
DX: I26.99 Other pulmonary embolism without acute cor pulmonale (principal); J96.01 Acute respiratory failure with hypoxia; C34.91 Malignant neoplasm of unspecified part of right bronchus or lung; E03.9 Hypothyroidism, unspecified; E78.00 Pure hypercholesterolemia, unspecified; R59.0 Localized enlarged lymph nodes; K76.0 Fatty (change of) liver, not elsewhere classified; K80.20 Calculus of gallbladder without cholecystitis without obstruction; Z85.51 Personal history of malignant neoplasm of bladder; Z79.01 Long term (current) use of anticoagulants; Z87.891 Personal history of nicotine dependence
CPT/HCPCS: 71275; 76700; 80048; 80053; 81003; 81015; 83690; 83880; 84145; 84484; 85025; 85610; 85730; 87086; 93005; 93306; 93970; 96374; 96375; 96376; 97161; 99285; Q9967

== ENCOUNTER → 2023-12-19 15:11 | Outpatient (REF) | payer MEDICARE, SELFPAY | LOC: HWRAD 15:11 | PROVIDERS: ATTENDING PHYSICIAN Nurse Practitioner Family; FAMILY PHYSICIAN Internal Medicine Geriatric Medicine | DX: R91.8 Other nonspecific abnormal finding of lung field (principal) | CPT/HCPCS: 71250 ==

== ENCOUNTER 2024-01-14 06:17 | Day surgery (SDC) | payer MEDICARE, SELFPAY ==
[2024-01-05 08:22] VITALS: BMI 32.5
[2024-01-05 08:54] LABS: Hemoglobin 10.8 g/dL (12.0-16.0); Mean Corp Hgb Conc. 31.8 g/dL (33.0-37.0); Mean Corpuscular Hgb 28.3 pg (27.0-31.0); Platelet Count 306 10^3/uL (130-400); Red Blood Cell Count 3.82 10^6/uL (4.20-5.40); Red Cell Dist. Width 15.1 % (11.5-14.5); White Blood Cell Count 7.2 10^3/uL (4.8-10.8)
[2024-01-05 08:59] LABS: INR 1.13; PT 14.4 Sec (11.4-14.6)
[2024-01-05 09:00] LABS: APTT 30.6 Sec (23.4-35.0)
[2024-01-05 09:17] LABS: Blood Urea Nitrogen 23 mg/dl (7-17); Calcium 9.4 mg/dl (8.4-10.2); Carbon Dioxide 24 mmol/L (22-30); Chloride 109 mmol/L (98-107); Estimated Creatinine Clearance 66 ml/min; Glucose 96 mg/dl (70-99); Potassium 4.1 mmol/L (3.5-5.1); Sodium 138 mmol/L (135-145); eGFR > 60.00
--- NOTE | 2024-01-08 16:06 | PTCARENOTE ---
Patients 11/11 EKG abnormal- reviewed by Dr. Price, no additional interventions required
[2024-01-14] VITALS (11 sets, daily range): BP systolic 96–161; BP diastolic 47–78; BMI 31.1
== END 2024-01-14 11:55 | disposition home or self-care (01) ==
LOC: GI 06:17
PROVIDERS: ATTENDING PHYSICIAN Internal Medicine Critical Care Medicine; FAMILY PHYSICIAN Internal Medicine Geriatric Medicine
DX: R91.8 Other nonspecific abnormal finding of lung field (principal); R06.02 Shortness of breath; J98.9 Respiratory disorder, unspecified; C34.31 Malignant neoplasm of lower lobe, right bronchus or lung; C77.9 Secondary and unspecified malignant neoplasm of lymph node, unspecified; R93.89 Abnormal findings on diagnostic imaging of other specified body structures; Z87.891 Personal history of nicotine dependence
CPT/HCPCS: 31629; 31625; 31624; 31654; 88173; 88305; 36415; 71045; 80048; 85027; 85610; 85730; 87015; 87070; 87102; 87116; 87205; 88112; 88333; 88341; 88342; 88360; 94640